=== PATIENT | male | born 1965 | race American Indian/Alaskan Native ===

== ENCOUNTER 2024-01-04 12:46 | Emergency (ER) | payer OTHER ==
[~2024-01-04] VITALS: Ht 170.2 cm; Wt 115.0 kg
[2024-01-04 14:12] VITALS: BP 140/80; PULSE 100; RESP 14; O2SAT 99
[2024-01-04] MEDS: ACETAMINOPHEN 500 MG TAB PO ONE (14:36)
[2024-01-04] MEDS ORDERED: IBUP-1456 PO (14:58)
[2024-01-04] MEDS ORDERED: BACL10TA PO (14:58)
[2024-01-04 15:19] VITALS: TEMP 98
== END 2024-01-04 15:20 | disposition home or self-care (01) ==
LOC: ER 12:46
DX: S16.1XXA Strain of muscle, fascia and tendon at neck level, initial encounter (principal); S39.012A Strain of muscle, fascia and tendon of lower back, initial encounter; Z79.1 Long term (current) use of non-steroidal anti-inflammatories (NSAID); V89.2XXA Person injured in unspecified motor-vehicle accident, traffic, initial encounter; Y93.89 Activity, other specified; Y92.89 Other specified places as the place of occurrence of the external cause; Y99.8 Other external cause status
CPT/HCPCS: 72040; 72100

== ENCOUNTER 2024-07-07 18:14 | Emergency (ER) | payer SELFPAY ==
[~2024-07-07] VITALS: Ht 172.7 cm; Wt 95.0 kg
[~2024-07-07 18:14] MED LIST: BACL10TA PO; IBUP-1456 PO
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
[2024-07-07 21:04] VITALS: BP 161/108; TEMP 97.7
[2024-07-07] MEDS ORDERED: METH4PAK PO (21:11)
[2024-07-07] MEDS ORDERED: TIZA-142 PO (21:11)
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
[2024-07-07 21:28] VITALS: PULSE 96; RESP 18; O2SAT 97
== END 2024-07-07 22:09 | disposition home or self-care (01) ==
LOC: EDUNIT# 18:14 → ER 18:14 → EDBD 18:14 → ER 21:29
DX: S46.912A Strain of unspecified muscle, fascia and tendon at shoulder and upper arm level, left arm, initial encounter (principal); S40.022A Contusion of left upper arm, initial encounter; Z79.899 Other long term (current) drug therapy; V89.2XXA Person injured in unspecified motor-vehicle accident, traffic, initial encounter; Y93.89 Activity, other specified; Y92.89 Other specified places as the place of occurrence of the external cause; Y99.8 Other external cause status
CPT/HCPCS: 73030